=== PATIENT | male | born 1950 | race Caucasian/White ===

== ENCOUNTER 2021-11-22 12:20 | Observation (INO) | payer OTHER ==
[~2021-11-22] VITALS: Ht 177.8 cm; Wt 81.7 kg
[2021-11-22 14:23] LABS: BASOPHILS ABSOLUTE AUTO 0.05 K/mm3 (0.00-0.23); BASOPHILS PERCENT AUTO 1 % (0-2); EOSINOPHILS ABSOLUTE AUTO 0.01 K/mm3 (0.00-0.68); EOSINOPHILS PERCENT AUTO 0 % (0-6); Hematocrit 38.2 % (37.0-53.0); Hemoglobin 12.2 g/dL (13.5-17.5); IMMATURE GRAN ABSOLUTE AUTO 0.06 K/mm3 (0.00-0.10); IMMATURE GRAN PERCENT AUTO 1 % (0-1); LYMPHOCYTES ABSOLUTE AUTO 1.16 K/mm3 (0.84-5.20); LYMPHOCYTES PERCENT AUTO 11 % (21-46); MONOCYTES ABSOLUTE AUTO 0.88 K/mm3 (0.16-1.47); MONOCYTES PERCENT AUTO 9 % (4-13); Mean Corpuscular HGB Conc 31.9 g/dL (31.5-36.5); Mean Corpuscular Volume 91 fL (80-100); Mean Platelet Volume 9.7 fL (9.1-12.4); NEUTROPHILS ABSOLUTE AUTO 8.21 K/mm3 (1.96-9.15); NEUTROPHILS PERCENT AUTO 79 % (41-73); Platelet Count 342 K/mm3 (150-400); RDW Coefficient Variation 13.4 % (11.7-14.2); RDW Standard Deviation 44.3 fL (35.1-46.3); Red Blood Cell Count 4.21 M/mm3 (4.30-5.90); White Blood Cell Count 10.37 K/mm3 (4.00-11.30)
[2021-11-22 14:37] LABS: Alanine Aminotransfer (ALT/SGP 26 U/L (12-78); Albumin, Blood 3.5 g/dL (3.4-5.0); Albumin/Globulin Ratio 1.1 (0.8-1.8); Alk Phos 137 U/L (50-136); Anion Gap 7 mmol/L (6-16); Aspartate Aminotrans (AST/SGOT 9 U/L (12-37); Bilirubin, Total 0.3 mg/dL (0.1-1.0); Blood Urea Nitrogen 34 mg/dL (8-24); Bun/Creatinine Ratio 14.3 (12.0-20.0); CO2, Blood 21 mmol/L (21-32); Calcium, Blood 8.4 mg/dL (8.5-10.1); Chloride, Blood 115 mmol/L (98-108); Creatinine, Blood 2.37 mg/dL (0.60-1.20); Ethanol (Alcohol), Blood, Med <3 mg/dL; Globulin, Blood 3.1 g/dL (2.2-4.0); Glomerular Filtration Rate 27 (60-); Glucose, Blood 108 mg/dL (70-99); Potassium, Blood 4.6 mmol/L (3.5-5.5); Salicylate <1.7 mg/dL (2.8-20.0); Sodium, Blood 143 mmol/L (136-145); Total Protein, Blood 6.6 g/dL (6.4-8.2)
[2021-11-22 14:43] LABS: Acetaminophen, Random <2.0 ug/mL (10.0-30.0)
[2021-11-22 15:03] LABS: Influenza A, PCR NEGATIVE (NEGATIVE); Influenza B, PCR NEGATIVE (NEGATIVE); Resp Syncytial Virus, PCR NEGATIVE (NEGATIVE); SARS-Cov-2 (COVID-19) PCR, MMC NEGATIVE (NEGATIVE)
[2021-11-22 17:01] LABS: Source, Urine Clean Catch
[2021-11-22 17:10] LABS: Bilirubin, Urine Neg (Neg); Blood, Urine 1+ (Neg); Glucose Qualitative, Urine Neg (Neg); Ketones, Urine Neg (Neg); Leukocyte Esterase, Urine Neg (Neg); Nitrite, Urine Neg (Neg); Protein, Urine Neg (Neg); Specific Gravity, Urine 1.015 (1.003-1.022); Urobilinogen, Urine NORM (Normal)
[2021-11-22 17:16] LABS: Appearance, Urine Clear (Clear); Color, Urine Yellow (P-Yellow)
[2021-11-22 17:17] LABS: Red Blood Cells, Urine 0-2 /hpf (0-2); Squamous Epithelial Cells Few /hpf (Few); White Blood Cells, Urine 0-2 /hpf (0-5)
[2021-11-22 17:18] LABS: Bacteria Not Seen /hpf
[2021-11-22 17:27] LABS: U Amphetamine Screen Not Detected; U Barbituate Screen Not Detected; U Benzodiazapine Screen Not Detected; U Buprenorphine Screen Not Detected; U Cannabinoids Screen Not Detected; U Cocaine Screen Not Detected; U Methadone Screen Not Detected; U Methamphetamine Screen Not Detected; U Opiates Screen Not Detected; U Oxycodone Screen Not Detected; U Phencyclidine Screen Not Detected; U Propoxyphene Screen Not Detected
[2021-11-22] MEDS ORDERED: CLOZ100 PO (18:35)
[2021-11-22] MEDS ORDERED: DIPH50 PO (18:36)
[2021-11-22] MEDS ORDERED: PERP8 PT (18:37)
[2021-11-22] MEDS ORDERED: TRAZ50 PO (18:37)
[2021-11-22] MEDS ORDERED: MELA3 PO (18:38)
[2021-11-22] MEDS ORDERED: THERA-D2000 UNIT PO (18:39)
[2021-11-22] MEDS ORDERED: MIRALAX17 GM PO (18:39)
== END 2021-11-22 21:24 ==
LOC: ER 12:20 → EOR 12:21
PROVIDERS: Physician Assistant; ADMIT Student in an Organized Health Care Education/Training Program
DX: F20.0 Paranoid schizophrenia (principal); N18.9 Chronic kidney disease, unspecified; Z20.822 Contact with and (suspected) exposure to COVID-19
CPT/HCPCS: 0241U; 36415; 80053; 81001; 85025; A9270; G0480

== ENCOUNTER 2022-11-27 14:12 | Emergency (ER) | payer OTHER ==
[~2022-11-27] VITALS: Ht 177.8 cm; Wt 81.7 kg
[~2022-11-27 14:12] MED LIST: CLOZ100 PO; DIPH50 PO; MELA3 PO; MIRALAX17 GM PO; PERP8 PT; THERA-D2000 UNIT PO; TRAZ50 PO
== END 2022-11-27 16:23 | disposition home or self-care (01) ==
LOC: ER 14:12
DX: R10.2 Pelvic and perineal pain (principal); Z79.899 Other long term (current) drug therapy
CPT/HCPCS: 72170; 99283-25; A9270

== ENCOUNTER 2023-08-01 04:27 | Observation (INO) | payer OTHER ==
[~2023-08-01] VITALS: Ht 177.8 cm; Wt 49.0 kg
[2023-08-01 04:55] VITALS: BP 132/79
[2023-08-01 05:44] LABS: BASOPHILS ABSOLUTE AUTO 0.05 K/mm3 (0.00-0.23); BASOPHILS PERCENT AUTO 1 % (0-2); EOSINOPHILS PERCENT AUTO 0 % (0-6); Hematocrit 36.8 % (37.0-53.0); Hemoglobin 11.9 g/dL (13.5-17.5); IMMATURE GRAN ABSOLUTE AUTO 0.03 K/mm3 (0.00-0.10); IMMATURE GRAN PERCENT AUTO 0 % (0-1); LYMPHOCYTES ABSOLUTE AUTO 1.03 K/mm3 (0.84-5.20); LYMPHOCYTES PERCENT AUTO 13 % (21-46); MONOCYTES ABSOLUTE AUTO 0.68 K/mm3 (0.16-1.47); MONOCYTES PERCENT AUTO 9 % (4-13); Mean Corpuscular HGB Conc 32.3 g/dL (31.5-36.5); Mean Corpuscular Volume 90 fL (80-100); Mean Platelet Volume 9.5 fL (9.1-12.4); NEUTROPHILS ABSOLUTE AUTO 6.17 K/mm3 (1.96-9.15); NEUTROPHILS PERCENT AUTO 78 % (41-73); Platelet Count 293 K/mm3 (150-400); RDW Coefficient Variation 14.1 % (11.7-14.2); RDW Standard Deviation 45.6 fL (35.1-46.3); Red Blood Cell Count 4.11 M/mm3 (4.30-5.90); White Blood Cell Count 7.96 K/mm3 (4.00-11.30)
[2023-08-01 06:18] LABS: Acetaminophen, Random <2.0 ug/mL (10.0-30.0); Alanine Aminotransfer (ALT/SGP 21 U/L (12-78); Albumin, Blood 3.6 g/dL (3.4-5.0); Albumin/Globulin Ratio 1.1 (0.8-1.8); Alk Phos 118 U/L (50-136); Anion Gap 6 mmol/L (6-16); Aspartate Aminotrans (AST/SGOT 11 U/L (12-37); Bilirubin, Total 0.4 mg/dL (0.1-1.0); Blood Urea Nitrogen 29 mg/dL (8-24); Bun/Creatinine Ratio 12.2 (12.0-20.0); CO2, Blood 22 mmol/L (21-32); Calcium, Blood 8.4 mg/dL (8.5-10.1); Chloride, Blood 116 mmol/L (98-108); Creatinine, Blood 2.37 mg/dL (0.60-1.20); Ethanol (Alcohol), Blood, Med <3 mg/dL; Globulin, Blood 3.2 g/dL (2.2-4.0); Glomerular Filtration Rate 29 (60-); Glucose, Blood 129 mg/dL (70-99); Potassium, Blood 4.5 mmol/L (3.5-5.5); Salicylate <1.7 mg/dL (2.8-20.0); Sodium, Blood 144 mmol/L (136-145); Total Protein, Blood 6.8 g/dL (6.4-8.2)
[2023-08-01 07:31] LABS: Source, Urine Clean Catch
[2023-08-01 07:48] LABS: Appearance, Urine Hazy (Clear); Bilirubin, Urine Neg (Neg); Blood, Urine 1+ (Neg); Glucose Qualitative, Urine Neg (Neg); Ketones, Urine Neg (Neg); Leukocyte Esterase, Urine 3+ (Neg); Nitrite, Urine Pos (Neg); Protein, Urine Neg (Neg); Urobilinogen, Urine NORM (Normal)
[2023-08-01 08:06] LABS: Color, Urine Pale Yellow (P-Yellow)
[2023-08-01 08:08] LABS: White Blood Cells, Urine 25-50 /hpf (0-5)
[2023-08-01 08:17] LABS: Amorphous Heavy (0-Heavy); Bacteria Mod /hpf; Red Blood Cells, Urine 0-2 /hpf (0-2); Squamous Epithelial Cells Few /hpf (Few)
[2023-08-01 08:35] LABS: U Amphetamine Screen Not Detected; U Barbituate Screen Not Detected; U Benzodiazapine Screen Not Detected; U Buprenorphine Screen Not Detected; U Cannabinoids Screen Not Detected; U Cocaine Screen Not Detected; U Methadone Screen Not Detected; U Methamphetamine Screen Not Detected; U Opiates Screen Not Detected; U Oxycodone Screen Not Detected; U Phencyclidine Screen Not Detected
[2023-08-01] MEDS ORDERED: CEFP200 PO (09:01)
== END 2023-08-01 09:06 | disposition home or self-care (01) ==
LOC: ER 04:27 → EOR 04:28
PROVIDERS: ADMIT Student in an Organized Health Care Education/Training Program
DX: F20.9 Schizophrenia, unspecified (principal); N39.0 Urinary tract infection, site not specified
CPT/HCPCS: 36415; 80053; 81001; 85025; 87086; 93005; 93010; 99285-25; A9270; G0378; G0480

== ENCOUNTER → 2025-07-23 | Outpatient (CLI) | payer OTHER ==
[~2025-07-23] MED LIST changes: +CEFP200 PO
[2025-07-23 13:47] LABS: Source, Urine Clean Catch
[2025-07-23 15:49] LABS: Bilirubin, Urine Neg (Neg); Color, Urine Yellow (P-Yellow); Glucose Qualitative, Urine Neg (Neg); Ketones, Urine Neg (Neg); Leukocyte Esterase, Urine Neg (Neg); Protein, Urine 1+ (Neg); Specific Gravity, Urine 1.010 (1.003-1.022); Urobilinogen, Urine NORM (Normal)
[2025-07-23 19:35] LABS: Creatinine, Urine Random 57.4 mg/dL (27.00-270.00); Protein, Urine Random 21.3 mg/dL (0.0-11.9); Protein/Creat Ratio, Ur Random 0.4
== END ==
LOC: LAB SHORT 08:00 → LAB 08:00
PROVIDERS: Hospitalist
DX: N18.4 Chronic kidney disease, stage 4 (severe) (principal); E55.9 Vitamin D deficiency, unspecified; N25.81 Secondary hyperparathyroidism of renal origin
CPT/HCPCS: 82570; 84156